=== PATIENT | female | born 1940 | race Caucasian/White ===

== ENCOUNTER 2022-05-29 04:01 | Observation (INO) | payer OTHER ==
[2022-05-29 05:46] LABS: Absolute Lymphocytes (CBC) 1.1 K/uL (0.7-4.9); Hematocrit 33.5 % (36.0-45.0); Lymphocytes % 10.2 % (15.3-44.8); MPV 7.2 fL (7.6-11.3); RBC Red Blood Cell Count 3.73 M/uL (3.86-4.86)
[2022-05-29 06:08] LABS: Albumin 3.1 g/dL (3.4-5.0); Bilirubin Direct 0.1 mg/dL (0-0.2); Bilirubin Total 0.4 mg/dL (0.2-1.0); Protein, Total 6.3 g/dL (6.4-8.2); Troponin High Sensitivity 12.1 pg/mL (<58.9)
[2022-05-29 06:11] LABS: Potassium 4.7 mmol/L (3.5-5.1)
[2022-05-29] MEDS ORDERED: ACETAMINOPHEN 500 MG TAB ONE (06:20)
[2022-05-29 07:02] LABS: SARS-CoV-2 Antigen Rapid Res Negative (Negative)
[2022-05-29 07:28] LABS: Arterial Blood Carboxyhemoglob 1.6 % (0-1.5); Blood Gas Oxyhemoglobin 90.7 % (94-97); Blood O2 Saturation 93.2 % (92-98.5)
[2022-05-29] MEDS ORDERED: IPRATROPIUM BROM 0.5MG/2.5ML ONE (07:30)
[2022-05-29] MEDS ORDERED: METHYLPREDNISOLONE 125 MG INJ ONE ×2 (07:30→13:49)
[2022-05-29] MEDS ORDERED: ALBUTEROL 2.5 MG/3 ML NEB SOL ONE (07:30)
--- NOTE | 2022-05-29 07:43 | ER ---
Nurse's Notes [facility] Name: Frances Fowler Age: 82 yrs Sex: Female : 1940 Arrival Date: 05/29/2022 Time: 04:05 Bed 20 Private MD: Diagnosis: Syncope Near;COPD/ Chronic obstructive pulmonary disease with (acute) exacerbation;Hypoxemia Presentation: 05/29 04:09 Chief complaint: EMS states: they were toned out for report of pt with headache was bb seen here on the 2nd for the same thing and given RX for Fioricet but it is not helping. Coronavirus screen: At this time, the client does not indicate any symptoms associated with coronavirus-19. Ebola Screen: No symptoms or risks identified at this time. Initial Sepsis Screen: Does the patient meet any 2 criteria? No. Patient's initial sepsis screen is negative. Does the patient have a suspected source of infection? No. Patient's initial sepsis screen is negative. Risk Assessment: Do you want to hurt yourself or someone else? Patient reports no desire to harm self or others. Onset of symptoms was May 23, 2022. 04:09 Method Of Arrival: EMS: [facility] bb 04:09 Acuity: ERICKSON 3 bb Triage Assessment: 07:34 General: Appears in no apparent distress. Behavior is calm, cooperative. garcia Historical: - Allergies: 04:11 NSAIDS; bb - Immunization history:: Moderna x 4. - Social history:: Smoking status: Patient/guardian denies using tobacco, the patient reports quitting approximately 10 years ago. Screenin:33 Abuse screen: Denies threats or abuse. Denies injuries from another. Nutritional tw5 screening: No deficits noted. Tuberculosis screening: No symptoms or risk factors identified. Fall Risk Secondary diagnosis (15 points). Assessment: 04:33 General: Reports "I have a terrible headache.". tw5 06:20 Neuro: Level of Consciousness is awake, alert, obeys commands, Oriented to person, tw5 place, time, situation, Reports headache. 07:34 Pain: Complains of pain in head aches. Neuro: Reports. garcia Vital Signs: 04:09 BP 120 / 62; Pulse 64; Resp 18 S; Temp 98.9(O); Pulse Ox 96% on 3 lpm NC; Weight 90.72 bb kg (R); Height 5 ft. 8 in. (172.72 cm) (R); Pain 8/10; 06:20 Pulse 79; Resp 20; Pulse Ox 97% on 2 lpm NC; tw5 07:34 BP 122 / 96; Pulse 79; Resp 20; Pulse Ox 100% on 8% Nebulizer Mask; garcia 04:09 Body Mass Index 30.41 (90.72 kg, 172.72 cm) ED Course: 04:05 Patient arrived in ED. mw2 04:08 Patient has correct armband on for positive identification. Bed in low position. Call 5 light in reach. Side rails up X2. Warm blanket given. radiation monitor on. Pulse ox on. NIBP on. 04:11 Cynthia Espinoza is Primary Nurse. tw5 04:11 Triage completed. bb 04:11 Arm band placed on Patient placed in an exam room, on a stretcher. bb 04:23 Eldon Phelps MD is Attending Physician. mh7 04:33 No provider procedures requiring assistance completed. tw5 05:32 XRAY Chest (1 view) In Process Unspecified. EDMS 05:40 Basic Metabolic Panel Sent. as6 05:40 CBC with Diff Sent. as6 05:40 LFT's Sent. as6 05:40 Magnesium Sent. as6 05:40 NT PRO-BNP Sent. as6 05:40 PT-INR Sent. as6 05:40 Troponin HS Sent. as6 05:58 CT Head Brain wo Cont In Process Unspecified. EDMS 06:10 Basic Metabolic Panel Sent. tw5 06:10 LFT's Sent. tw5 06:10 Magnesium Sent. tw5 06:10 NT PRO-BNP Sent. tw5 06:10 PT-INR Sent. tw5 06:10 Troponin HS Sent. tw5 06:20 COVID swab sent to lab. tw5 06:21 SARS RAPID Sent. tw5 07:33 Inserted saline lock: 20 gauge in left antecubital area, using aseptic technique. garcia 07:42 Juan C Evans MD is Hospitalizing Provider. 7 07:59 Primary Nurse role handed off by Cynthia Espinoza bd 08:35 Brigid Curry, RN is Primary Nurse. garcia 14:30 Patient did not have IV access during this emergency room visit. garcia Administered Medications: 06:17 Drug: Tylenol 1000 mg Route: PO; tw5 07:33 Follow up: Response: No adverse reaction garcia 07:33 Drug: Albuterol 2.5 mg Route: Inhalation; garcia 07:33 Drug: AtroVENT (ipratropium) Aerosol 0.5 mg Route: Inhalation; garcia 07:33 Drug: SOLU-Medrol (methylPrednisoLONE) 125 mg Route: IVP; Site: left antecubital; garcia 07:33 Follow up: Response: No adverse reaction garcia Medication: 07:34 VIS not applicable for this client. garcia Outcome: 07:43 Decision to Hospitalize by Provider. [facility] 14:29 Admitted to Med/surg accompanied by nurse, room 217. garcia 14:29 Condition: good 14:29 Instructed on the need for admit. 14:33 Patient left the ED. jl7 Signatures: Dispatcher [employer] EDMS Kim Saldaña Brenda, RN RN Katelyn Mary 5 Adán Craft RN RN 7 Jerry Tovar 2 Eldon Phelps MD MD 7 Cynthia Espinoza [facility] Evan Marks RN RN as6 Brigid Curry RN RN
--- NOTE | 2022-05-29 07:44 | EDPHYS ---
Physician Documentation [facility] Name: Frances Fowler Age: 82 yrs Sex: Female : 1940 Arrival Date: 05/29/2022 Time: 04:05 Bed 20 Private MD: ED Physician Eldon Phelps HPI: 05/29 05:00 This 82 yrs old Female presents to ER via EMS with complaints of Fall. mh7 05:00 Details of fall: The patient fell from an upright position, while walking. Onset: The mh7 symptoms/episode began/occurred today. Associated injuries: The patient sustained injury to the head, pain. Severity of symptoms: At their worst the symptoms were moderate, earlier today, in the emergency department the symptoms have improved, moderately. Historical: - Allergies: 04:11 NSAIDS; bb - Immunization history:: Moderna x 4. - Social history:: Smoking status: Patient/guardian denies using tobacco, the patient reports quitting approximately 10 years ago. ROS: 05:00 Constitutional: Negative for fever, chills, and weight loss, Eyes: Negative for injury, mh7 pain, redness, and discharge, ENT: Negative for injury, pain, and discharge, Neck: Negative for injury, pain, and swelling, Cardiovascular: Negative for chest pain, palpitations, and edema, Respiratory: Negative for shortness of breath, cough, wheezing, and pleuritic chest pain, Abdomen/GI: Negative for abdominal pain, nausea, vomiting, diarrhea, and constipation, Back: Negative for injury and pain, : Negative for injury, bleeding, discharge, and swelling, MS/Extremity: Negative for injury and deformity, Skin: Negative for injury, rash, and discoloration, Psych: Negative for depression, anxiety, suicide ideation, homicidal ideation, and hallucinations, Allergy/Immunology: Negative for hives, rash, and allergies, Endocrine: Negative for neck swelling, polydipsia, polyuria, polyphagia, and marked weight changes, Hematologic/Lymphatic: Negative for swollen nodes, abnormal bleeding, and unusual bruising. Exam: 05:00 Constitutional: This is a well developed, well nourished patient who is awake, alert, mh7 and in no acute distress. Head/Face: Normocephalic, atraumatic. Eyes: Pupils equal round and reactive to light, extra-ocular motions intact. Lids and lashes normal. Conjunctiva and sclera are non-icteric and not injected. Cornea within normal limits. Periorbital areas with no swelling, redness, or edema. ENT: Nares patent. No nasal discharge, no septal abnormalities noted. Tympanic membranes are normal and external auditory canals are clear. Oropharynx with no redness, swelling, or masses, exudates, or evidence of obstruction, uvula midline. Mucous membranes moist. Neck: Trachea midline, no thyromegaly or masses palpated, and no cervical lymphadenopathy. Supple, full range of motion without nuchal rigidity, or vertebral point tenderness. No Meningismus. Chest/axilla: Normal chest wall appearance and motion. Nontender with no deformity. No lesions are appreciated. Cardiovascular: Regular rate and rhythm with a normal S1 and S2. No gallops, murmurs, or rubs. Normal PMI, no JVD. No pulse deficits. Respiratory: Lungs have equal breath sounds bilaterally, clear to auscultation and percussion. No rales, rhonchi or wheezes noted. No increased work of breathing, no retractions or nasal flaring. Abdomen/GI: Soft, non-tender, with normal bowel sounds. No distension or tympany. No guarding or rebound. No evidence of tenderness throughout. Back: No spinal tenderness. No costovertebral tenderness. Full range of motion. Skin: Warm, dry with normal turgor. Normal color with no rashes, no lesions, and no evidence of cellulitis. MS/ Extremity: Pulses equal, no cyanosis. Neurovascular intact. Full, normal range of motion. Neuro: Awake and alert, GCS 15, oriented to person, place, time, and situation. Cranial nerves II-XII grossly intact. Motor strength 5/5 in all extremities. Sensory grossly intact. Cerebellar exam normal. Normal gait. Psych: Awake, alert, with orientation to person, place and time. Behavior, mood, and affect are within normal limits. Vital Signs: 04:09 BP 120 / 62; Pulse 64; Resp 18 S; Temp 98.9(O); Pulse Ox 96% on 3 lpm NC; Weight 90.72 bb kg (R); Height 5 ft. 8 in. (172.72 cm) (R); Pain 8/10; 06:20 Pulse 79; Resp 20; Pulse Ox 97% on 2 lpm NC; tw5 07:34 BP 122 / 96; Pulse 79; Resp 20; Pulse Ox 100% on 8% Nebulizer Mask; garcia 04:09 Body Mass Index 30.41 (90.72 kg, 172.72 cm) bb MDM: 07:41 Differential diagnosis: abrasion, closed head injury, contusion, fracture, syncope, mh7 near syncope. Data reviewed: vital signs, nurses notes, EMS record, lab test result(s), cardiac enzymes, CBC, electrolytes, Flu: negative EKG, radiologic studies, CT scan, plain films. Data interpreted: Pulse oximetry: on 3L(s) per nasal canula, is 96 %. Interpretation: acceptable. Counseling: I had a detailed discussion with the patient and/or guardian regarding: the historical points, exam findings, and any diagnostic results supporting the discharge/admit diagnosis, lab results, radiology results, the need for further work-up and treatment in the hospital. Response to treatment: the patient's symptoms have mildly improved after treatment. 07:43 Patient medically screened. [facility] 05/29 05:13 Order name: Basic Metabolic Panel; Complete Time: 06:52 [facility] 05/29 05:13 Order name: CBC with Diff; Complete Time: 05:56 [facility] 05/29 05:13 Order name: LFT's; Complete Time: 06:52 [facility] 05/29 05:13 Order name: Magnesium; Complete Time: 06:52 [facility] 05/29 05:13 Order name: NT PRO-BNP; Complete Time: 06:52 [facility] 05/29 05:13 Order name: PT-INR [facility] 05/29 05:13 Order name: Troponin HS; Complete Time: 06:52 [facility] 05/29 05:56 Order name: SARS RAPID; Complete Time: 07:05 [facility] 05/29 07:05 Order name: Arterial Blood Gas [facility] 05/29 07:51 Order name: CBC with Automated Diff EDMS 05/29 07:51 Order name: CBC with Automated Diff EDMS 05/29 07:51 Order name: CKMB Creatine Kinase MB MS 05/29 07:51 Order name: CKMB Creatine Kinase MB EDMS 05/29 07:51 Order name: CKMB Creatine Kinase MB EDMS 05/29 05:13 Order name: XRAY Chest (1 view) [facility] 05/29 05:13 Order name: EKG; Complete Time: 05:15 [facility] 05/29 05:13 Order name: Cardiac monitoring; Complete Time: 05:40 [facility] 05/29 05:13 Order name: CT Head Brain wo Cont [facility] 05/29 07:49 Order name: Diet Heart Healthy; Complete Time: 07:50 garcia 05/29 07:49 Order name: MRI Stroke Protocol 05/29 07:51 Order name: Heart Healthy [facility] 05/29 07:51 Order name: CKMB Creatine Kinase MB [facility] 05/29 07:51 Order name: Comprehensive Metabolic Panel [facility] 05/29 07:51 Order name: Comprehensive Metabolic Panel [facility] 05/29 12:50 Order name: MRI [facility] 05/29 12:52 Order name: MRI [facility] 05/29 05:13 Order name: EKG - Nurse/Tech; Complete Time: 05:40 [facility] 05/29 05:13 Order name: IV Saline Lock; Complete Time: 07:33 [facility] 05/29 05:13 Order name: Labs collected and sent; Complete Time: 05:40 [facility] 05/29 05:13 Order name: O2 Per Protocol; Complete Time: 05:40 [facility] 05/29 05:13 Order name: O2 Sat Monitoring; Complete Time: 05:40 7 Administered Medications: 06:17 Drug: Tylenol 1000 mg Route: PO; [email or web address]] 07:33 Follow up: Response: No adverse reaction garcia 07:33 Drug: Albuterol 2.5 mg Route: Inhalation; garcia 07:33 Drug: AtroVENT (ipratropium) Aerosol 0.5 mg Route: Inhalation; garcia 07:33 Drug: SOLU-Medrol (methylPrednisoLONE) 125 mg Route: IVP; Site: left antecubital; garcia 07:33 Follow up: Response: No adverse reaction garcia Disposition Summary: 05/29/22 07:43 Hospitalization Ordered Hospitalization Status: Inpatient Admission [facility] Provider: Juan C Evans Johnathon Condition: Stable [facility] Problem: new [facility] Symptoms: have improved [facility] Bed/Room Type: Standard [facility] Location: Telemetry/MedSurg (Inpatient)(05/29/22 14:01) bd Room Assignment: [facility](05/29/22 14:01) bd Diagnosis - Syncope Near [facility] - COPD/ Chronic obstructive pulmonary disease with (acute) exacerbation [facility] - Hypoxemia [facility] Forms: - Medication Reconciliation Form 7 - SBAR form 7 Signatures: Dispatcher [employer] EDKim Otero Brenda, RN RN bb Leal, Jahala, RN RN jl7 Holmes, Maurice, MD MD 7 Cynthia Espinoza tw5 Brigid Curry RN RN garcia Corrections: (The following items were deleted from the chart) 12:35 07:43 Telemetry/MedSurg (Inpatient) [facility]7 12:35 07:43 [facility] 14:01 12:35 [facility] ER HOLD jl7 bd 14:01 12:35 ERHOLD- 7 bd
[2022-05-29] MEDS ORDERED: ACETAMINOPHEN 500 MG TAB PO PRN (07:46)
[2022-05-29] MEDS ORDERED: ALBUTEROL 2.5 MG/3 ML NEB SOL NEB PRN ×2 (07:46→15:00)
[2022-05-29] MEDS ORDERED: ONDANSETRON 4 MG/2 ML VIAL IV PRN (07:46)
[2022-05-29] MEDS ORDERED: MORPHINE 2 MG/ML SYR IV PRN (07:46)
[2022-05-29] MEDS: IPRATROPIUM BROM 0.5MG/2.5ML NEB SCH ×3 (08:00→20:00)
[2022-05-29] MEDS: METHYLPREDNISOLONE 125 MG INJ IV SCH ×3 (12:00→23:52)
--- NOTE | 2022-05-29 12:50 | RAD REPORT ---
EXAM DESCRIPTION: MRI - MRA Head Wo Cont - 05/29/2022 12:31 pm CLINICAL HISTORY: r/o stroke CVA COMPARISON: Brain Wo Cont dated 05/29/2022 FINDINGS: 3D noncontrast [id number] MR angiography of the [place] was performed. 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 Right dominant vertebral artery. No lar ge vessel occlusion. The visualized dural venous sinuses appear patent. 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 Consider CTA to better ginny fy the anatomy. Discussed with Dr. Evans by Dr. Love at 1243 on 05/29/22
--- NOTE | 2022-05-29 12:51 | RAD REPORT ---
EXAM DESCRIPTION: MRI - Brain Wo Cont - 05/29/2022 12:33 pm CLINICAL HISTORY: R/O STROKE COMPARISON: No comparisons TECHNIQUE: Sagittal T1-weighted images were obtained along with PD/heavily T2-weighted and T2-FLAIR images. Axial DWI and ADC mapping sequences were also obtained along with coronal heavily T2-weighted images were obtained. FINDINGS: No intracranial hemorrhage, mass or acute infarction. There is no edema or shift of midlin e structures. No extra-axial fluid collections. Signal voids are seen as a normal finding in the cheri r intracranial vessels. Mild to moderate chronic small vessel ischemic changes. Mastoid air cells and paranasal sinuses are clear. IMPRESSION: No acute intracranial abnormality. Specifically, no evidence of acute infarct. Mild to m oderate chronic small vessel ischemic changes.
--- NOTE | 2022-05-29 13:43 | EKG ---
Test Date: 2022-05-29 Test Time: 05:33:37 Garbage Worker: MEASUREMENT RESULTS: Intervals: Rate: 83 NM: 144 QRSD: 72 QT: 362 QTc: 425 [place]: P: 0 NM: 144 QRS: 29 T: 55 INTERPRETIVE STATEMENTS: Sinus rhythm with premature atrial complexes with aberrant conduction Otherwise normal ECG Compared to ECG 11/11/1992 15:03:00 Atrial premature complex(es) now present Aberrant conduction of supraventricular beat(s) now present Electronically Signed On 05-29-22 13:42:44 CDT by Javi Brown
[2022-05-29 13:58] LABS: Protime INR 1.01
--- NOTE | 2022-05-29 15:43 | RAD REPORT ---
EXAM DESCRIPTION: RAD - Chest Single View - 05/29/2022 5:30 am TECHNIQUE: Chest radiograph single view. CLINICAL HISTORY: Cough COMPARISON: None . FINDINGS: Heart: Normal. Mediastinum/Vessels: Prominent central vessels. Lungs/Pleural space: There are prominent reticular markings. Possible small left pleural effusion. No pneumothorax. Bony thorax: No acute osseous abnormality. Life support devices: None. IMPRESSION: Findings are compatible with mild pulmonary edema. Correlate clinically to exclude an in fectious process Electronically signed by: Leena Phelps MD 05/29/2022 6:04 AM CDT Due to temporary technical issues with the PACS/Fluency reporting system, reports are being signed by the in house radiologists without review as a courtesy to insure prompt reporting. The interpreting radiologist is fully responsible for the content of the report.
[2022-05-29 15:57] VITALS: BMI 30.4
--- NOTE | 2022-05-29 15:58 | RAD REPORT ---
EXAM DESCRIPTION: CT - Head Brain Wo Cont - 05/29/2022 6:48 am CLINICAL HISTORY: 82 years Female Headache, tension-type TECHNIQUE: Multiple axial CT images of the brain were performed followed by sagittal and coronal rec onstructed images. The CT study is performed according to ALARA (as low as reasonably achievable) or ALARA/IMAGE GENTLY, with automatic adjustment of mA and/or kV according to patient size. Performed on: 05/29/2022 at 5:51 AM COMPARISON: None. FINDINGS: Brain: There is no evidence of mass, acute mass effect or midline shift. There are no acut e extra-axial fluid collections. There is no evidence of acute intracranial hemorrhage. The cerebra l sulci and ventricles are prominent consistent with mild cerebral volume loss. There are scattered a reas of decreased attenuation within the subcortical and periventricular white matter most likely due to mild chronic microangiopathy. There are calcifications along the supraclinoid right ICA. Paranasal Sinuses and Mastoids: There is trace mucosal thickening of the paranasal sinuses. The masto id air cells are clear. Orbits: The orbital contents are grossly unremarkable. Bones: No acute osseous abnormalities are identified. Soft Tissues: No focal soft tissue abnormalities are identified. IMPRESSION: 1. There is no evidence of acute intracranial pathology. 2. Mild cerebral volume loss with findings compatible with chronic microangiopathy. Electronically signed by: Geraldine Vega DO 05/29/2022 6:20 AM CDT Due to temporary technical issues with the PACS/Fluency reporting system, reports are being signed by the in house radiologists without review as a courtesy to insure prompt reporting. The interpreting radiologist is fully responsible for the content of the report.
--- NOTE | 2022-05-29 18:15 | P.HP ---
Certification for Inpatient Patient admitted to: Inpatient With expected LOS: >2 Midnights Practitioner: I am a practitioner with admitting privileges, knowledge of patient current condition, hospital course, and medical plan of care. Services: Services provided to patient in accordance with Admission requirements found in Title 42 Section 412.3 of the Code of Federal Regulations Patient History Date of Service: 05/29/22 Reason for admission: NEAR SYNCOPE History of Present Illness: DELL HAS SEVERE COPD, ALSO HAS R SIDE HEADACHES THAT ARE NEW. SHE HAD NEAR SYNCOPE EPISODE TODAY, SHE DID NOT TOTALLY PASSED OUT. SHE HAS NO FOCAL WEAKNESS. SHE WAS GIVEN ELAVIL FOR HEADACHES PREVENTION BUT SHE DID NOT TAKE IT WORRIED ABOUT SE. Allergies NSAIDS (Non-Steroidal Anti-Inflamma Allergy (Verified 05/29/22 08:51) UNK Home medications list reviewed: No (NOT IN CHART YET) - Past Medical/Surgical History Has patient received pneumonia vaccine in the past: Yes Diabetic: No -: COPD -: Hernia -: Tonsillectomy -: Bilateral knee replacement - Social History Smoking Status: Former smoker Alcohol use: Yes CD- Drugs: No Caffeine use: No Review of Systems 10-point ROS is otherwise unremarkable General: Weakness, Malaise Respiratory: Shortness of Breath Physical Examination - Vital Signs Temperature: 98.1 F Blood Pressure: 122/77 Pulse: 84 Respirations: 16 Pulse Ox (%): 93 - Physical Exam General: Acute distress, Mild distress HEENT: Atraumatic, PERRLA, Mucous membr. moist/pink, EOMI, Sclerae nonicteric Neck: Supple, 2+ carotid pulse no bruit, No LAD, Without JVD or thyroid abnormality Respiratory: Diminished Cardiovascular: Regular rate/rhythm, Normal S1 S2 Gastrointestinal: Normal bowel sounds, No tenderness Musculoskeletal: No tenderness Integumentary: No rashes Neurological: Normal gait, Normal speech, Normal strength at 5/5 x4 extr, Normal tone, Normal affect Lymphatics: No axilla or inguinal lymphadenopathy - Studies Laboratory Data (last 24 hrs) 05/29/22 05:37: WBC 10.3, Hgb 11.5 L, Hct 33.5 L, Plt Count 259 05/29/22 05:37: Sodium 136, Potassium 4.7, BUN 25 H, Creatinine 1.11, Glucose 115 H, Magnesium 2.0, Total Bilirubin 0.4, AST 20, ALT 25, Alkaline Phosphatase 65 Assessment and Plan - Problems (Diagnosis) (1) Near syncope Current Visit: Yes Status: Acute Plan: MR ANGIONGRAM HAS TWO SMALL ANEURYSMS ON L SIDE UNRELATED TO HER HEADACHES OR SYNCOPE. I SENT REPORT TO DR. MONTEIRO . SHE MOST LIKELY WILL NOT NEED ANY INTERVENTION SHE HAS SEVERE COPD ANDANEURYSMS ARE SMALL. (2) COPD (chronic obstructive pulmonary disease) Current Visit: Yes Status: Chronic Plan: STABLE. SEVERE COPD. NEBS. Qualifiers: COPD type: COPD with acute exacerbation Qualified Code(s): J44.1 - Chronic obstructive pulmonary disease with (acute) exacerbation - Advance Directives Does patient have a Living Will: No Does patient have a Durable POA for Healthcare: No
[2022-05-30] MEDS: IPRATROPIUM BROM 0.5MG/2.5ML NEB SCH ×2 (01:40→07:58)
[2022-05-30 05:32] VITALS: TEMP 97.8
[2022-05-30] MEDS: METHYLPREDNISOLONE 125 MG INJ IV SCH (05:38)
[2022-05-30 05:51] LABS: Absolute Lymphocytes (CBC) 0.5 K/uL (0.7-4.9); Lymphocytes % 5.7 % (15.3-44.8); MCV 90.8 fL (80-100); MPV 7.6 fL (7.6-11.3); RBC Red Blood Cell Count 3.52 M/uL (3.86-4.86)
[2022-05-30 06:10] LABS: Albumin 2.8 g/dL (3.4-5.0); Bilirubin Total 0.3 mg/dL (0.2-1.0); Potassium 4.2 mmol/L (3.5-5.1); Protein, Total 6.1 g/dL (6.4-8.2)
[2022-05-30 06:42] LABS: Blood Morphology Comment NOT SEEN (NOT SEEN); Platelet Estimate ADEQ; White Blood Cell Scan OK (OK)
[2022-05-30 08:53] VITALS: BP 131/61
[2022-05-30 09:34] VITALS: O2SAT 93
--- NOTE | 2022-05-30 21:55 | P.DS ---
Admission Date: 05/29/22 Discharge Date: 05/30/22 Disposition: ROUTINE DISCHARGE Discharge Condition: FAIR Reason for Admission: NEAR SYNCOPE - Problems (1) Near syncope Status: Acute (2) COPD (chronic obstructive pulmonary disease) Status: Chronic Qualifiers: COPD type: COPD with acute exacerbation Qualified Code(s): J44.1 - Chronic obstructive pulmonary disease with (acute) exacerbation Brief History of Present Illness: DELL HAS SEVERE COPD, ALSO HAS R SIDE HEADACHES THAT ARE NEW. SHE HAD NEAR SYNCOPE EPISODE TODAY, SHE DID NOT TOTALLY PASSED OUT. SHE HAS NO FOCAL WEAKNESS. SHE WAS GIVEN ELAVIL FOR HEADACHES PREVENTION BUT SHE DID NOT TAKE IT WORRIED ABOUT SE. Hospital Course: DELL HAD NEAR SYNCOPE EPISODE. HER MRA SHOWED 100 ANTERIOR L SIDE ANEUSYM AND A SMAALLER [place] ANEURYSM. I ALKED TO DR. MONTEIRO AND HW WILL SEE HER ASA P. PATIENT AND DAUGHTER IS AWARE. Vital Signs/Physical Exam: Temp Pulse Resp BP Pulse Ox 97.8 F 60 16 131/61 92 05/30/22 08:00 05/30/22 08:00 05/30/22 08:00 05/30/22 08:00 05/30/22 08:00 Laboratory Data at Discharge: WBC 9.0 K/uL (4.3-10.9) 05/30/22 05:18 Hgb 10.7 g/dL (12.0-15.0) L 05/30/22 05:18 Hct 32.0 % (36.0-45.0) L 05/30/22 05:18 Plt Count 257 K/uL (152-406) 05/30/22 05:18 PT 11.1 SECONDS (9.5-12.5) 05/29/22 13:38 INR 1.01 05/29/22 13:38 Sodium 138 mmol/L (136-145) 05/30/22 05:18 Potassium 4.2 mmol/L (3.5-5.1) 05/30/22 05:18 BUN 21 mg/dL (7-18) H 05/30/22 05:18 Creatinine 0.94 mg/dL (0.55-1.3) 05/30/22 05:18 Glucose 174 mg/dL (74-106) H 05/30/22 05:18 Magnesium 2.0 mg/dL (1.8-2.4) 05/29/22 05:37 Total Bilirubin 0.3 mg/dL (0.2-1.0) 05/30/22 05:18 AST 14 U/L (15-37) L 05/30/22 05:18 ALT 23 U/L (12-78) 05/30/22 05:18 Alkaline Phosphatase 58 U/L (45-117) 05/30/22 05:18 Home Medications: Amitriptyline HCl 10 mg PO DAILY 05/29/22 Fluticasone/Umeclidin/Vilanter [Trelegy Ellipta 100-62.5-25] 1 each IH DAILY 05/29/22 Furosemide 20 mg PO DAILY 05/29/22 Ipratropium/Albuterol Sulfate [Iprat-Albut 0.5-3(2.5) mg/3 ml] 3 ml IH PRN PRN 05/29/22 Sertraline [Zoloft*] 25 mg PO DAILY 05/29/22 predniSONE [Deltasone*] 10 mg PO DAILY 05/29/22 Potassium Chloride [Klor-Con M20] 20 meq PO DAILY #90 05/30/22 New Medications: Potassium Chloride [Klor-Con M20] 20 meq PO DAILY #90 Followup: Juan C Evans MD [Primary Care Provider] - (Call to schedule apointment)
== END 2022-05-30 10:30 | disposition home or self-care (01) ==
LOC: ER 04:01 → INTOOBSV 07:45 → ERHOLD 07:45 → 2ND 14:21
PROVIDERS: ADMIT Internal Medicine; ATTEND Internal Medicine
DX: R55 Syncope and collapse (principal); J44.1 Chronic obstructive pulmonary disease with (acute) exacerbation; I67.1 Cerebral aneurysm, nonruptured; R09.02 Hypoxemia; R51.9 Headache, unspecified; R53.81 Other malaise; Z87.891 Personal history of nicotine dependence; Z88.8 Allergy status to other drugs, medicaments and biological substances; Z96.653 Presence of artificial knee joint, bilateral; Z20.822 Contact with and (suspected) exposure to COVID-19
CPT/HCPCS: 93005; 85025 ×2; 80048; 36415; 83735; 85610; 80076; 84484; 82553 ×3; 80053; 83880; 70450; 71045; 70551; 70544; 82805; 94760 ×3; 96374; 99285; 87811; J2930 ×5